=== PATIENT | female | born 1930 | race Caucasian/White ===

== ENCOUNTER → 2016-04-19 | Outpatient (CLI) | payer MEDICARE ==
[2016-04-19 17:52] LABS: ANION GAP 15.3 MEQ/L (3-15)
== END ==
LOC: LAB 17:02
PROVIDERS: ATTEND Family Medicine
DX: R79.89 Other specified abnormal findings of blood chemistry (principal); M81.0 Age-related osteoporosis without current pathological fracture
CPT/HCPCS: 36415; 80048; 82306

== ENCOUNTER → 2016-05-31 | Outpatient (CLI) | payer MEDICARE ==
[~2016-05-31] VITALS: Ht 162.6 cm; Wt 61.4 kg
[~2016-05-31] MED LIST: ACET-2264 PO; ASPI-586 PO; BRIM5DRO2 OS; CALC-697 PO; CETI10CA PO; FOSI10TA3 PO; METO-272 PO; MULT-1034 PO; NS FLUSH 10 ML PRN IV; NS FLUSH 3 ML PRN IV; OMEP20CA12 PO; POTA10CA43 PO; cefTRIAXone SODIUM 1,000 MG in SODIUM CHLORIDE 50 ML IV ONE
--- NOTE | 2016-05-31 16:51 | NUR ---
Pt. arrives to [facility] for antibiotic infusion, ambulatory, accompanied by daughter.
[2016-05-31 16:55] VITALS: BP 195/80
[2016-05-31 17:02] VITALS: BP 195/80
--- NOTE | 2016-05-31 17:02 | NUR ---
Manual BP rechecked - 190/90. Pt. states BP was 120/[address] Aguilar's office. Meds were taken this am as prescribed. Pt. does report some anxiety. Will recheck before dismissing home. Addendum: 05/31/16 at 1703 by Eryn Quinonez RN Amended: Links added.
--- NOTE | 2016-05-31 17:45 | NUR ---
Manual BP rechecked - 160/90. Pts. daughter states that is close to her "normal".
--- NOTE | 2016-05-31 17:46 | NUR ---
Pt. dismissed to home via WC with personal cane. Accompanied off floor by this RN and daughter.
== END ==
LOC: EUOP 16:05 → MED/SURG 16:45 → EUOP 17:52
PROVIDERS: ATTEND Family Medicine
DX: K11.20 Sialoadenitis, unspecified (principal)
CPT/HCPCS: 96365; J0696